=== PATIENT | female | born 1945 | race Caucasian/White ===

== ENCOUNTER 2021-01-06 16:17 | Emergency (ER) | payer OTHER ==
[~2021-01-06] VITALS: Ht 160 cm; Wt 99.3 kg
[~2021-01-06 16:17] MED LIST: ATOR40TA68 PO; GABA600T PO; GLU500 PO; LEVO125T8 PO; LISI-221 PO; PRO40 PO
--- NOTE | 2021-01-06 16:20 | NUR ---
Pt triaged and placed in waiting room
[2021-01-06 16:41] VITALS: BP_SYST 157
[2021-01-06 20:38] LABS: BASOPHILS # (AUTO) 0.1 K/uL (0.0-0.2); BASOPHILS % (AUTO) 0.5 % (0.0-2.0); EOSINOPHILS # (AUTO) 0.2 K/uL (0.0-0.4); EOSINOPHILS % (AUTO) 1.5 % (0.0-4.0); HEMATOCRIT 42.3 % (36-48); HEMOGLOBIN 13.9 g/dL (12.0-16.0); LYMPHOCYTES # (AUTO) 3.1 K/uL (1.0-5.5); LYMPHOCYTES % (AUTO) 28.4 % (20.5-51.5); MEAN CORPUSCULAR HEMOGLOBIN 30 pg (27-31); MEAN CORPUSCULAR HGB CONC 33 % (32-36); MEAN CORPUSCULAR VOLUME 90 fL (79.0-98.0); MONOCYTES % (AUTO) 9.5 % (1.7-9.3); NEUTROPHILS # (AUTO) 6.5 K/uL (1.8-7.7); NEUTROPHILS % (AUTO) 60.1 % (40.0-70.0); PLATELET COUNT (AUTO) 306 K/uL (130-430); RED BLOOD CELL COUNT(AUTO) 4.69 MIL/uL (4.2-6.2); RED CELL DISTRIBUTION WIDTH 15.3 % (9.0-15.0); WHITE BLOOD COUNT (AUTO) 10.8 K/uL (4.8-10.8)
[2021-01-06 20:46] LABS: BILIRUBIN,URINE NEGATIVE (NEGATIVE); COLOR,URINE YELLOW (YELLOW); GLUCOSE,URINE NEGATIVE (NEGATIVE); KETONES,URINE NEGATIVE (NEGATIVE); LEUKOCYTE ESTERASE ,URINE TRACE (NEGATIVE); NITRITE, URINE POSITIVE (NEGATIVE); PH,URINE 5.5 (5.0-8.0); PROTEIN URINE NEGATIVE (NEGATIVE); UROBILINOGEN,URINE 0.2 (0.2-1.0)
[2021-01-06 20:54] LABS: ANION GAP 5 (5-15); CALCIUM 9.9 mg/dL (8.4-11.0); CHLORIDE 106 mmol/L (98-107); CREATININE 1.03 mg/dL (0.55-1.30); GLUCOSE 103 mg/dL (70-99); POTASSIUM 4.4 mmol/L (3.5-5.1); SODIUM SERUM 141 mmol/L (136-145); UREA NITROGEN, BLOOD 15 mg/dL (8-21)
[2021-01-06 21:00] LABS: ALANINE AMINOTRANSFERASE 27 U/L (12-78); ALBUMIN 3.8 g/dL (3.4-4.8); ASPARTATE AMINOTRANSFERASE 24 U/L (10-37); LIPASE 142 U/L (73-393); TOTAL BILIRUBIN 0.4 mg/dL (0.0-1.0)
[2021-01-06 21:17] LABS: BLOOD, URINE TRACE (NEGATIVE); CLARITY/URINE HAZY (CLEAR)
--- NOTE | 2021-01-06 21:28 | NUR ---
Placed in room 1 . Placed on property assessment monitor, blood pressure machine and pulse oximeter. To gown for exam. Side rails up. Report given to OSORIO BEY.
--- NOTE | 2021-01-06 21:30 | NUR ---
PATIENT AAOX4 AND AMBULATORY C/O RIGHT UPPER QUADRANT PAIN X 1 WEEK. DENIES ANY N/V/D. DENIES ANY CHANGES IN DIET RECENTLY. CURRENTLY STATING 10/10 ON THE PAIN SCALE. HISTORY OF DM, HTN, AND HYPOTHYROIDISM. VSS. NO ABDOMINAL DISTENTION NOTED.
--- NOTE | 2021-01-06 21:37 | NUR ---
DR. MOORE AT BEDSIDE FOR EVALUATION.
--- NOTE | 2021-01-06 21:48 | NUR ---
PATIENT TAKEN TO CT SCAN VIA WHEELCHAIR BY RADIOLOGY STAFF.
[2021-01-06 22:01] LABS: BACTERIA,URINE MANY /HPF (None Seen); RBC,URINE 0-3 /HPF (0-3)
[2021-01-06 22:02] LABS: MUCUS,URINE 1+ /LPF (None Seen)
[2021-01-07] MEDS ORDERED: CIPR500T5 PO (00:31)
[2021-01-07] MEDS ORDERED: METR500T PO (00:31)
[2021-01-07 00:37] VITALS: BP_SYST 153
--- NOTE | 2021-01-07 00:38 | NUR ---
Patient given written and verbal discharge instructions and verbalizes understanding. DR. KARMA VASQUES MD discussed with patient the results and treatment provided. Patient in stable condition. ID arm band removed. Rx of CIPRO, FLAGYL given. Patient educated on pain management and to follow up with PMD. Pain Scale 0/10. Opportunity for questions provided and answered. Medication side effect fact sheet provided.
== END 2021-01-07 00:38 | disposition home or self-care (01) ==
LOC: SED 16:17
DX: K57.92 Diverticulitis of intestine, part unspecified, without perforation or abscess without bleeding (principal); N39.0 Urinary tract infection, site not specified; I10 Essential (primary) hypertension; Z79.899 Other long term (current) drug therapy
CPT/HCPCS: 36415; 76376; 80053; 81000; 83690; 84484; 85025; 87086; 93005; 99285

== ENCOUNTER 2021-09-13 17:29 | Emergency (ER) | payer OTHER ==
[~2021-09-13] VITALS: Ht 160 cm; Wt 90.7 kg
[~2021-09-13 17:29] MED LIST changes: +CIPR500T5 PO; +METR500T PO
[2021-09-13 17:31] VITALS: BP_SYST 155
[2021-09-13 18:31] LABS: BASOPHILS # (AUTO) 0.1 K/uL (0.0-0.2); EOSINOPHILS # (AUTO) 0.2 K/uL (0.0-0.4); EOSINOPHILS % (AUTO) 2.8 % (0.0-4.0); HEMOGLOBIN 13.6 g/dL (12.0-16.0); LYMPHOCYTES # (AUTO) 2.7 K/uL (1.0-5.5); LYMPHOCYTES % (AUTO) 33.5 % (20.5-51.5); MEAN CORPUSCULAR HEMOGLOBIN 28 pg (27-31); MEAN CORPUSCULAR HGB CONC 32 % (32-36); MEAN CORPUSCULAR VOLUME 86 fL (79.0-98.0); MONOCYTES # (AUTO) 0.8 K/uL (0.0-1.0); MONOCYTES % (AUTO) 10.2 % (1.7-9.3); NEUTROPHILS # (AUTO) 4.2 K/uL (1.8-7.7); NEUTROPHILS % (AUTO) 52.5 % (40.0-70.0); PLATELET COUNT (AUTO) 306 K/uL (130-430); RED BLOOD CELL COUNT(AUTO) 4.88 MIL/uL (4.2-6.2); RED CELL DISTRIBUTION WIDTH 15.3 % (9.0-15.0); WHITE BLOOD COUNT (AUTO) 8.1 K/uL (4.8-10.8)
[2021-09-13 18:48] LABS: ANION GAP 8 (5-15); CALCIUM 9.7 mg/dL (8.4-11.0); CHLORIDE 105 mmol/L (98-107); CREATININE 0.98 mg/dL (0.55-1.30); GLUCOSE 99 mg/dL (70-99); POTASSIUM 4.3 mmol/L (3.5-5.1); SODIUM SERUM 139 mmol/L (136-145); UREA NITROGEN, BLOOD 16 mg/dL (8-21)
[2021-09-13 18:57] LABS: ALANINE AMINOTRANSFERASE 23 U/L (12-78); ALBUMIN 3.6 g/dL (3.4-4.8); ASPARTATE AMINOTRANSFERASE 21 U/L (10-37); PHOSPHORUS 3.6 mg/dL (2.7-4.5); TOTAL BILIRUBIN 0.2 mg/dL (0.0-1.0)
[2021-09-14 00:57] VITALS: BP_SYST 136
== END 2021-09-14 00:56 | disposition home or self-care (01) ==
LOC: SED 17:29
DX: R10.11 Right upper quadrant pain (principal); R07.9 Chest pain, unspecified; I10 Essential (primary) hypertension
CPT/HCPCS: 36415; 71045; 74177; 76376; 80053; 83735; 84100; 84484; 85025; 85379; 93005; 99285; Q9967

== ENCOUNTER 2021-09-15 23:23 | Emergency (ER) | payer OTHER ==
[~2021-09-15] VITALS: Ht 160 cm; Wt 90.7 kg
[2021-09-15 23:46] VITALS: BP_SYST 181
[2021-09-15] MEDS ORDERED: IBUPROFEN 600 MG TABLET ONE (23:59)
[2021-09-16] MEDS ORDERED: IBUPROFEN 600 MG TABLET PO ONE
--- NOTE | 2021-09-16 01:06 | NUR ---
Placed in room 7 . Placed on residential monitor, blood pressure machine and pulse oximeter. To gown for exam. Side rails up. Report given Nona BEY
--- NOTE | 2021-09-16 01:13 | NUR ---
Pt BIB daughter from home due to RUQ pain x2 weeks. Pt was recently seen here in ED and was advised to return to ED if pain persisted or worsened. Pt arrived to ED in no acute distress. Breathing adequately on RA. Addendum: 09/16/21 at 0117 by [id number] MAIDA Andersen
[2021-09-16 03:46] LABS: BASOPHILS % (AUTO) 0.5 % (0.0-2.0); EOSINOPHILS # (AUTO) 0.2 K/uL (0.0-0.4); EOSINOPHILS % (AUTO) 2.8 % (0.0-4.0); HEMATOCRIT 41.7 % (36-48); HEMOGLOBIN 13.6 g/dL (12.0-16.0); LYMPHOCYTES # (AUTO) 2.6 K/uL (1.0-5.5); LYMPHOCYTES % (AUTO) 34.5 % (20.5-51.5); MEAN CORPUSCULAR HEMOGLOBIN 28 pg (27-31); MEAN CORPUSCULAR HGB CONC 33 % (32-36); MEAN CORPUSCULAR VOLUME 87 fL (79.0-98.0); MONOCYTES # (AUTO) 0.8 K/uL (0.0-1.0); MONOCYTES % (AUTO) 10.3 % (1.7-9.3); NEUTROPHILS # (AUTO) 3.9 K/uL (1.8-7.7); NEUTROPHILS % (AUTO) 51.9 % (40.0-70.0); PLATELET COUNT (AUTO) 316 K/uL (130-430); RED BLOOD CELL COUNT(AUTO) 4.81 MIL/uL (4.2-6.2); RED CELL DISTRIBUTION WIDTH 15.6 % (9.0-15.0); WHITE BLOOD COUNT (AUTO) 7.6 K/uL (4.8-10.8)
[2021-09-16 03:59] LABS: ANION GAP 6 (5-15); CALCIUM 9.8 mg/dL (8.4-11.0); CHLORIDE 105 mmol/L (98-107); CREATININE 1.02 mg/dL (0.55-1.30); GLUCOSE 139 mg/dL (70-99); SODIUM SERUM 138 mmol/L (136-145); UREA NITROGEN, BLOOD 14 mg/dL (8-21)
--- NOTE | 2021-09-16 04:00 | NUR ---
Resting in bed in no acute distress. Breathing adequately on RA. Son at bedside.
[2021-09-16 04:05] LABS: ALANINE AMINOTRANSFERASE 30 U/L (12-78); ALBUMIN 3.5 g/dL (3.4-4.8); ASPARTATE AMINOTRANSFERASE 24 U/L (10-37); TOTAL BILIRUBIN 0.3 mg/dL (0.0-1.0)
[2021-09-16] MEDS ORDERED: KETOROLAC TROMETHAMINE 15 MG VIAL IVP ONE (05:30)
[2021-09-16] MEDS ORDERED: IBUP-1969 PO (06:45)
[2021-09-16] MEDS ORDERED: NEU300 PO (06:45)
[2021-09-16] MEDS ORDERED: TRAM50TA2 PO (06:45)
[2021-09-16] MEDS ORDERED: GABAPENTIN 100 MG CAPSULE PO ONE (06:45)
--- NOTE | 2021-09-16 07:29 | NUR ---
Patient given written and verbal discharge instructions and verbalizes understanding. ER MD Torres discussed with patient the results and treatment provided. Patient in stable condition. ID arm band removed. IV catheter removed intact and dressing applied, no active bleeding. Patient educated on pain management and to follow up with PMD. Pain Scale 0/10. Opportunity for questions provided and answered. Medication side effect fact sheet provided.
[2021-09-16 07:34] VITALS: BP_SYST 143
--- NOTE | 2021-09-16 07:34 | NUR ---
Patient given written and verbal discharge instructions and verbalizes understanding. ER MD discussed with patient the results and treatment provided. Patient in stable condition. ID arm band removed. IV catheter removed intact and dressing applied, no active bleeding.Rx of Motrin, Neurontin and Tramadol given. Patient educated on pain management and to follow up with PMD. Pain Scale 0/10. Opportunity for questions provided and answered.
== END 2021-09-16 07:27 | disposition home or self-care (01) ==
LOC: SED 23:23
DX: R07.89 Other chest pain (principal); R10.11 Right upper quadrant pain; I10 Essential (primary) hypertension; E11.9 Type 2 diabetes mellitus without complications; Z79.899 Other long term (current) drug therapy; Z79.84 Long term (current) use of oral hypoglycemic drugs
CPT/HCPCS: 36415; 72128; 76376; 80053; 85025; 85651; 96374; 99284; J1885

== ENCOUNTER → 2023-11-01 | Emergency (ER) | payer OTHER ==
[~2023-11-01] VITALS: Ht 160 cm; Wt 90.7 kg
[~2023-11-01] MED LIST changes: +IBUP-1969 PO; +NEU300 PO; +TRAM50TA2 PO
[2023-11-01 20:09] VITALS: BP_SYST 143; PULSE 75; RESP 20; TEMP 98; O2SAT 97
[2023-11-01 20:29] VITALS: TEMP 99.1
[2023-11-01 21:50] VITALS: BP_SYST 139; PULSE 79; RESP 18; O2SAT 97
== END | disposition home or self-care (01) ==
LOC: SED 20:00
DX: S89.92XA Unspecified injury of left lower leg, initial encounter (principal); E11.9 Type 2 diabetes mellitus without complications; I10 Essential (primary) hypertension; Z85.850 Personal history of malignant neoplasm of thyroid; Z79.899 Other long term (current) drug therapy; Z79.2 Long term (current) use of antibiotics; X58.XXXA Exposure to other specified factors, initial encounter; Y93.89 Activity, other specified; Y92.89 Other specified places as the place of occurrence of the external cause; Y99.8 Other external cause status
CPT/HCPCS: 93971; 99284